=== PATIENT | female | born 1955 | race Caucasian/White ===

== ENCOUNTER → 2022-01-01 | Outpatient (CLI) | payer MEDICARE, SELFPAY ==
[2022-01-01 21:52] LABS: Absolute Lymphocyte Count 1.91 X10^3/uL (0.83-4.51); Absolute Neutrophil Count 4.8 X10^3/uL (2.0-7.7); Basophil# 0.04 X10^3/uL; Basophil% 0.6 % (0-1); Eosinophil# 0.03 X10^3/uL; Eosinophils% 0.4 % (0-5); Hematocrit 41.4 % (37-47); Hemoglobin 13.8 g/dL (12.0-15.0); Lymphocyte # 1.91 X10^3/ul (0.83-4.51); Lymphocyte % 26.3 % (19-41); Mean Corp Hgb Conc 33.3 g/dL (32-36); Mean Corpuscular Hgb 29.7 pg (27.0-32.0); Mean Corpuscular Volume 89.2 fL (81-99); Mean Platelet Vol. 9.8 fl (6.2-12.0); Monocyte# 0.43 X10^3/uL; Monocyte% 5.9 % (0-10); NRBC Flagged by Analyzer 0 % (0-5); Neutrophil # 4.82 X10^3/uL (2.7-7.7); Neutrophil % 66.4 % (47-70); Platelet Count 309 K/mm3 (150-450); RBC Distribution Width CV 12.4 % (11.6-14.6); RBC Distribution Width SD 40.3 fl (35.1-43.9); Red Blood Count 4.64 M/mm3 (4.2-5.4); White Blood Count 7.3 K/mm3 (4.4-11.0)
[2022-01-01 22:03] LABS: ALB/GLOB Ratio 1.2 RATIO (0.9-2.4); AST(SGOT) 19 U/L (15-37); Alanine Aminotransfer ALT/SGPT 25 U/L (13-56); Albumin, Serum 4.5 g/dL (3.2-5.0); Alkaline Phosphatase 74 U/L (45-117); Anion Gap 6 (5-15); BUN 11 mg/dL (7-18); BUN/Creat Ratio 14.5 RATIO (10-20); Calcium,Total 9.8 mg/dL (8.5-10.1); Chloride 100 mmol/L (98-107); Cholesterol 235 mg/dL (200); Creatinine, Serum 0.76 mg/dL (0.55-1.02); EST Glomerular Filtration Rate 82 mL/min (>60); Est Glom Filt Rate - Afr Amer 99 mL/min (>60); Globulin 3.6 g/dL (2.2-4.2); Glucose 98 mg/dL (74-106); High Density Lipoprotein 67 mg/dL; Potassium 4.4 mmol/L (3.5-5.1); Protein, Total 8.1 g/dL (6.4-8.2); Sodium Level 135 mmol/L (136-145); Triglycerides 91 mg/dL; Very Low Density Lipoprotein 18 mg/dL (5-40)
== END | disposition home or self-care (01) ==
PROVIDERS: Visit Provider Nurse Practitioner
DX: Z00.00 Encounter for general adult medical examination without abnormal findings (principal)
CPT/HCPCS: 80053; 80061; 85025

== ENCOUNTER → 2022-09-20 | Outpatient (CLI) | payer MEDICARE, SELFPAY ==
[2022-09-20 21:05] LABS: Absolute Lymphocyte Count 2.09 X10^3/uL (0.83-4.51); Absolute Neutrophil Count 4.3 X10^3/uL (2.0-7.7); Basophil# 0.05 X10^3/uL; Basophil% 0.7 % (0-1); Eosinophil# 0.03 X10^3/uL; Eosinophils% 0.4 % (0-5); Hemoglobin 14.2 g/dL (12.0-15.0); Lymphocyte # 2.09 X10^3/ul (0.83-4.51); Lymphocyte % 30.1 % (19-41); Mean Corp Hgb Conc 33.8 g/dL (32-36); Mean Corpuscular Hgb 30.2 pg (27.0-32.0); Mean Corpuscular Volume 89.4 fL (81-99); Mean Platelet Vol. 9.7 fl (6.2-12.0); Monocyte# 0.44 X10^3/uL; Monocyte% 6.3 % (0-10); NRBC Flagged by Analyzer 0.3 % (0-5); Neutrophil # 4.31 X10^3/uL (2.7-7.7); Neutrophil % 62.2 % (47-70); Platelet Count 327 K/mm3 (150-450); RBC Distribution Width CV 12.6 % (11.6-14.6); RBC Distribution Width SD 41.4 fl (35.1-43.9); White Blood Count 6.9 K/mm3 (4.4-11.0)
[2022-09-20 21:20] LABS: ALB/GLOB Ratio 1.3 RATIO (0.9-2.4); AST(SGOT) 20 U/L (15-37); Alanine Aminotransfer ALT/SGPT 30 U/L (13-56); Albumin, Serum 4.4 g/dL (3.2-5.0); Alkaline Phosphatase 69 U/L (45-117); Anion Gap 5 (5-15); BUN 13 mg/dL (7-18); BUN/Creat Ratio 15.6 RATIO (10-20); CRP, High Sensitivity Cardiac 0.24 mg/L; Calcium,Total 9.2 mg/dL (8.5-10.1); Chloride 105 mmol/L (98-107); Cholesterol 241 mg/dL (200); Creatinine, Serum 0.84 mg/dL (0.55-1.02); EST Glomerular Filtration Rate 73 mL/min (>60); Est Glom Filt Rate - Afr Amer 88 mL/min (>60); Globulin 3.4 g/dL (2.2-4.2); Glucose 87 mg/dL (74-106); High Density Lipoprotein 69 mg/dL; Potassium 3.7 mmol/L (3.5-5.1); Protein, Total 7.8 g/dL (6.4-8.2); Sodium Level 140 mmol/L (136-145); Triglycerides 76 mg/dL; Very Low Density Lipoprotein 15 mg/dL (5-40)
[2022-09-24 16:35] LABS: Vitamin D 1,25-Dihydroxy 59.4 pg/mL (24.8-81.5)
== END | disposition home or self-care (01) ==
PROVIDERS: Visit Provider Nurse Practitioner
DX: Z00.00 Encounter for general adult medical examination without abnormal findings (principal); J01.20 Acute ethmoidal sinusitis, unspecified; E78.00 Pure hypercholesterolemia, unspecified; E55.9 Vitamin D deficiency, unspecified
CPT/HCPCS: 80053; 80061; 82652; 85025; 86141

== ENCOUNTER → 2023-06-02 | Outpatient (CLI) | payer MEDICARE, SELFPAY | END | disposition home or self-care (01) | PROVIDERS: PCP Nurse Practitioner; Visit Provider Nurse Practitioner | DX: N30.90 Cystitis, unspecified without hematuria (principal) | CPT/HCPCS: 87077; 87086; 87088; 87186 ==

== ENCOUNTER → 2024-09-27 | Outpatient (CLI) | payer MEDICARE, SELFPAY | END | disposition home or self-care (01) | PROVIDERS: PCP Nurse Practitioner; Referring Provider Nurse Practitioner; Visit Provider Nurse Practitioner | DX: N30.90 Cystitis, unspecified without hematuria (principal); E28.39 Other primary ovarian failure | CPT/HCPCS: 87086; 87088 ==

== ENCOUNTER → 2025-02-15 | Outpatient (CLI) | payer MEDICARE, SELFPAY ==
--- OUTSIDE RECORDS SUMMARY | 2025-02-15 22:41 | XMS RPT_ITS | CCD ---
Author Organization [facility] Care Team Providers Care Commercial Director Name Role Phone Jeane Donaldson Unavailable Unavailable Jeane Donaldson Unavailable Unavailable Jeane Donaldson Unavailable Unavailable Unavailable Primary Care Provider UnavailTrever Rothman Unavailable Unavailable Unknown, Referring Provider Unavailable Unav ailable Unknown, Referring Provider Unavailable Unav ailable Unavailable Unavailable Jeane Donaldson S Unavailable Dougie WAREHOUSE AND RECEIVING SUPERVISOR-C, Bianca Primary Care Provider Dougie WAREHOUSE AND RECEIVING SUPERVISOR-C, Bianca Attending Provider Dougie WAREHOUSE AND RECEIVING SUPERVISOR-C, Bianca Referring Provider Bianca Constantino NP Referring Unavailable Dougie WAREHOUSE AND RECEIVING SUPERVISORBianca Attending Unavailable Dougie WAREHOUSE AND RECEIVING SUPERVISOR, Bianca Primary Care Unavailable Allergies Allergy Classification Reported Allergen(s) Allergy Type Date of Onset Reaction(s) Facility (16 sources) Ampicillin; Translations: [ampicillin] Drug Allergy 01-01-2022 [facility] Medications Current Medications Medication Drug Class(es) Dates Sig (Normalized) Sig (Original) ciprofloxacin 500 mg oral tablet (3 sources) Quinolone Antimicrobial Start: 09-27-2024 take 1 tablet by mouth twice daily Ciprofloxacin Hcl (Cipro) 500 mg tablet Active 500 mg PO TWICE A DAY September 27, 2024 12:00am Start: 06-02-2023 End: 04-06-2024 take 1 tablet by mouth twice daily Ciprofloxacin Hcl (Cipro) 500 mg tablet Discontinued 500 mg PO TWICE A DAY June 02, 2023 1:00am April 06, 2024 5:33pm fluconazole 150 mg oral tablet (4 sources) Azole Antifungal Start: 03-13-2023 End: 06-02-2023 Fluconazole 150 mg tablet Active 150 mg PO Every 3 Days June 02, 2023 7:06pm may repeat second dose 72 hrs after first dose if symptoms persist ofloxacin 3 mg/ml ophthalmic solution (1 source) Quinolone Antimicrobial Start: 04-06-2024 Ofloxacin 0.3 % drop s Active 0 OPHTHALMIC .COMPLEX April 06, 2024 12:00am put 1-2 drps into affected eye(s) every 2-4 h x 2 days, then 1-2 drps 4 times/day days 3-7 ophthalmic (eye) triamcinolone acetonide 5 mg/ml topical cream (1 source) Corticosteroid Start: 04-06-2024 Triamcinolone Acetonide 0.5 % cream Active 1 NMA TOPICAL TWICE A DAY April 06, 2024 12:00am Completed/Discontinued Medications Medication Drug Class(es) Dates Sig (Normalized) Sig (Original) azithromycin 250 mg oral tablet (1 source) Macrolide Antimicrobial Start: 04-06-2024 End: 04-11-2024 take 2 tablets by mouth once daily, then take 1 tablet by mouth once daily at mealtime Azithromycin 250 mg tablet Discontinued 250 mg PO daily 6 April 06, 2024 12:00am April 10, 2024 12:00am April 11, 2024 12:08am 2 po qd for 1 day then 1 po qd for 4 days with food or after eating cefuroxime 500 mg oral tablet (2 sources) Cephalosporin Antibacterial Start: 03-13-2023 End: 06-02-2023 take 1 tablet by mouth twice daily Cefuroxime Axetil 500 mg tablet Discontinued 500 mg PO TWICE A DAY March 13, 2023 12:00am June 02, 2023 7:06pm doxycycline monohydrate 100 mg oral tablet (11 sources) Tetracycline-class Drug Start: 04-16-2019 take 1 tablet by mouth twice daily Doxycycline Monohydrate 100 MG Oral Tablet TAKE 1 TABLET TWICE DAILY. Quantity: 20 Refills: 0 Ordered: 16-Apr-2019 Trever Baird MD Start : 16-Apr-2019 Active Start: 04-16-2019 take 1 tablet by don th twice daily Doxycycline Monohydrate 100 MG Oral Tablet TAKE 1 TABLET TWICE DAILY. Quantity: 20 Refills: 0 Trever Baird MD Start : 16-Apr-2019 Active LIANG Dyer (10 sources) Start: 09-07-2021 Wlaking Boot, CAM size 8.5 shoe Quantity: 1 Refills: 0 Ordered: 07-Sep-2021 Kelsey ABIODUNErnestina Start : 07-Sep-2021 Active Problems Problem Classification Problem Date Documented Da te Episodic/Chronic E Codes: Fall (10 sources) Fall (on) (from) unspecified stairs and steps, initial encounter; Translations: [Fall from stairs] Episodic Fracture of lower limb (10 sources) Closed fracture of distal fibula ; Translations: [Unspecified fracture of ankle, closed] Episodic Genitourinary symptoms and ill-defined conditions (1 source) Alfredo hematuria; Translations: [Gross hematuria] 06-08-2023 Episodic Inflammation; infection of eye (except that caused by tuberculosis or sexually transmitteddisease) (1 source) Conjunctivitis; Translations: [Unspecified conjunctivitis] 04-07-2024 Episodic Menopausal disorders (3 sources) Decreased estrogen level; 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 Chronic Nonspecific chest pain (3 sources) Chest pain; Translations: [Chest pain, unspecified] 09-20-2022 Episodic Nutritional deficiencies (3 sources) Vitamin D deficiency; Translations: [Vitamin D deficiency, unspecified] 09-20-2022 Chronic Osteoporosis (3 sources) Menopausal osteoporosis; Translations: [Age-related osteoporosis without current pathological fracture] 09-20-2022 Chronic Other connective tissue disease (8 sources) H/O: arthritis; Translations: [Personal history of arthritis] Episodic Other ear and sense organ disorders (3 sources) Bilateral hearing loss; Translations: [Unspecified hearing loss, bilateral] 05-01-2022 Chronic Other ear and sense organ disorders (3 sources) Pain of ear structure; Translations: [Otalgia, unspecified ear] 05-01-2022 Episodic Other ear and sense organ disorders (3 sources) Impacted cerumen; Translations: [Impacted cerumen, bilateral] 05-01-2022 Episodic Other injuries and conditions due to external causes (10 sources) Injury of left foot; Translations: [Knee, leg, ankle, and foot injury] Episodic Other injuries and conditions due to external causes (10 sources) Injury of left ankle; Translations: [Knee, leg, ankle, and foot injury] Episodic Other lower respiratory disease (4 sources) Cough; Translations: [Cough] 09-16-2018 Episodic Other non-traumatic joint disorders (6 sources) Ankle pain; Translations: [Pain in joint, ankle and foot] Episodic Other upper respiratory infections (15 sources) Chronic sinusitis; Translations: [Unspecified sinusitis (chronic)] 09-16-2018 Chronic Other upper respiratory infections (2 sources) Acute maxillary sinusitis; Translations: [Acute maxillary sinusitis, unspecified] 03-13-2023 Episodic Otitis media and related conditions (2 sources) Acute right otitis media; Translations: [Otitis media, unspecified, right ear] 03-13-2023 Episodic Urinary tract infections (3 sources) Cystitis; Translations: [Cystitis, unspecified without hematuria] Onset: 09-30-2024 06-02-2023 Episodic Results Test Name Value Interpretation Reference Range Facility Urine Cultureon 09-29-2024 URC Below infection leve l. Mixed Gram Pos Gram Neg Org Lee Count 1000-10,000 MIX[facility] Mixed contaminants. Submit a new specimen if indicated. Normal [facility] Comment on above: Performed By: #### M 100.2200 #### [facility] [place], [address] Urine cultureOrdered By: Rogelio Constantino on 09-27-2024 Bacteria identified Cx Nom (U) Mixed Gram Pos & Gram Neg Org Abnormal [facility] Culture, urineOrdered By: Do ra Constantino on 06-02-2023 Bacteria identified Cx Nom (U) Escherichia coli [facility] Absolute lymphocyte countOrd ered By: Bianca Constantino on 09-20-2022 Lymphocytes Auto (Unsp spec) [#/Vol] 2.09 10*3/uL 0.83-4.51 [facility] Basophil percentageOrdered B y: Bianca Constantino on 09-20-2022 Basophils/100 WBC (Bld) 0.7 % 0-1 [facility] Bilirubin [Mass/Vol] 0.60 mg/dL 0.20-1.00 [facility] Comment on above: For patients on eltr ombopag therapy, use of Dimension [place] TBIL is not recommended. Chloride [Moles/Vol] 105 mmol/L 98-107 [facility] Cholesterol [Mass/Vol] 241 mg/dL <200 [facility] Comment on above: <200 mg/dL Desirable 200-240 mg/dL Borderline >240 mg/dL High Risk Eosinophils/100 WBC (Bld) 0.4 % 0-5 [facility] Glucose [Mass/Vol] 87 mg/dL 74-106 [facility] Neutrophils (Bld) [#/Vol] 4.3 10*3/uL 2.0-7.7 [facility] Neutrophils/100 WBC (Bld) 62.2 % 47-70 [facility] Potassium [Moles/Vol] 3.7 mmol/L 3.5-5.1 [facility] Protein [Mass/Vol] 7.8 g/dL 6.4-8.2 [facility] Sodium [Moles/Vol] 140 mmol/L 136-145 [facility] Triglyceride [Mass/Vol] 76 mg/dL <199 [facility] Comment on above: The drugs N-Acetylcy steine and Metamizole may falsely depress this assay.Serum Triglycerides Reference Interval Normal <150 mg/dL Borderline high 150 - 199 mg/dL High 200 - 499 mg/dL Very High > or = 500 mg/dL WBC (Bld) [#/Vol] 6.9 10*3/uL 4.4-11.0 [facility] Blood erythrocytes count (nu mber/volume)Ordered By: Bianca Constantino on 09-20-2022 RBC (Bld) [#/Vol] 4.70 10*6/uL 4.2-5.4 [facility] Blood hemoglobin measurement (mass/volume)Ordered By: Bianca Constantino on 09-20-2022 Hemoglobin (Bld) [Mass/Vol] 14.2 g/dL 12.0-15.0 [facility] Blood lymphocytes/100 leukoc ytesOrdered By: Bianca Constantino on 09-20-2022 Lymphocytes/100 WBC (Bld) 30.1 % 19-41 [facility] Blood monocytes/100 leukocyt esOrdered By: Bianca Constantino on 09-20-2022 Monocytes/100 WBC (Bld) 6.3 % 0-10 [facility] Blood platelet mean volumeOr dered By: Bianca Constantino on 09-20-2022 Platelet mean volume (Bld) [Entitic vol] 9.7 fL 6.2-12.0 [facility] Determination of erythrocyte mean corpuscular volume (MCV)Ordered By: Bianca Constantino on 09-20-2022 MCV (RBC) [Entitic vol] 89.4 fL 81-99 [facility] Hematocrit Auto (Bld) [Volum e fraction]Ordered By: Bianca Constantino on 09-20-2022 Hematocrit (Bld) [Volume fraction] 42.0 % 37-47 [facility] - Chemistry and C hemistry - challengeOrdered By: Bianca Constantino on 09-20-2022 ALP [Catalytic activity/Vol] 69 U/L 45-117 [facility] ALT [Catalytic activity/Vol] 30 U/L 13-56 [facility] CO2 [Moles/Vol] 30.0 mmol/L 21.0-32.0 [facility] Globulin (S) [Mass/Vol] 3.4 g/dL 2.2-4.2 [facility] Urea nitrogen/Creatinine [Mass ratio] 15.6 mg/mg 10-20 [facility] - Hematology and Cell countsOrdered By: Bianca Constantino on 09-20-2022 Erythrocyte distribution width (RBC) [Entitic vol] 41.4 fL 35.1-43.9 [facility] Erythrocyte distribution width (RBC) [Ratio] 12.6 % 11.6-14.6 [facility] Immature granulocytes/100 WBC (Bld) 0.300 % 0.0-0.9 [facility] Comment on above: IG% - Immature Granu locytes (promyelocytes, myelocytes and metamyelocytes) > 1% indicates that a LEFT SHIFT is Present. MCH (RBC) [Entitic mass] 30.2 pg 27.0-32.0 [facility] Nucleated RBC/100 WBC (Bld) [Ratio] 0.3 % 0-5 [facility] MCHC Auto (RBC) [Mass/Vol]Or dered By: Bianca Constantino on 09-20-2022 MCHC (RBC) [Mass/Vol] 33.8 g/dL 32-36 [facility] No Panel InformationOrdered By: Bianca Constantino on 09-20-2022 C-Reactive Protein High Sensitivity 0.24 mg/L <3.00 [facility] Comment on above: Low Relative Risk of CVD <1.0 mg/L Average Relative Risk of CVD 1.0 - 3.0 mg/L High Relative Risk of CVD >3.0 mg/L Estimated GFR (MDRD) Amer 88 mL/min >60 [facility] Comment on above: GFR Calc Estimated GFR (MDRD) Non-Af Amer 73 mL/min >60 [facility] Comment on above: Non- GFR Calc Platelets bldOrdered By: Rogelio Constantino on 09-20-2022 Platelets (Bld) [#/Vol] 327 10*3/uL 150-450 [facility] Serum or plasma albumin arpit urement (mass/volume)Ordered By: Bianca Constantino on 09-20-2022 Albumin [Mass/Vol] 4.4 g/dL 3.2-5.0 [facility] Serum or plasma albumin/glob ulin mass ratioOrdered By: Bianca Constantino on 09-20-2022 Albumin/Globulin [Mass ratio] 1.3 {ratio} 0.9-2.4 [facility] Serum or plasma calcitriol m easurement (mass/volume)Ordered By: Bianca Constantino on 09-20-2022 1,25-dihydroxyvitamin D3 [Mass/Vol] 59.4 pg/mL 24.8-81.5 [facility] Comment on above: Performed at: - [address] [id number] Director: Colleen Schreiber MD, Phone: [phone] Serum or plasma calcium arpit urement (mass/volume)Ordered By: Bianca Constantino on 09-20-2022 Calcium [Mass/Vol] 9.2 mg/dL 8.5-10.1 [facility] Serum or plasma cholesterol in HDL measurement (mass/volume)Ordered By: Bianca Constantino on 09-20-2022 Cholesterol in HDL [Mass/Vol] 69 mg/dL >40 [facility] Comment on above: The drugs N-Acetylcy steine and Metamizole may falsely depress this assay. Reference Range HDL <40 mg/dL Low HDL Cholesterol HDL >or= 60 mg/dL High HDL Cholesterol Serum or plasma cholesterol in VLDL measurement (mass/volume)Ordered By: Bianca Constantino on 09-20-2022 Cholesterol in VLDL [Mass/Vol] 15 mg/dL 5-40 [facility] Serum or plasma creatinine m easurement (mass/volume)Ordered By: Bianca Constantino on 09-20-2022 Creatinine [Mass/Vol] 0.84 mg/dL 0.55-1.02 [facility] Comment on above: The validity of the calculated GFR & GFRAA in patients over 70 years has not been determined. Clinical correlation is essential. Serum or plasma low density lipoprotein (LDL) cholesterol measurement (mass/volume)Ordered By: Bianca Constantino on 09-20-2022 Cholesterol in LDL [Mass/Vol] 157 mg/dL 0-130 [facility] Serum or plasma urea nitroge n measurement (mass/volume)Ordered By: Bianca Constantino on 09-20-2022 Urea nitrogen [Mass/Vol] 13 mg/dL 7-18 [facility] Thin prep Papanicolaou smear with manual screeningOrdered By: Bianca Constantino on 09-20-2022 Thin prep Papanicolaou smear with manual screening 20 U/L 15-37 [facility] Thin prep Papanicolaou smear with manual screening 5 5-15 [facility] Absolute lymphocyte counton 01-01-2022 Lymphocytes Auto (Unsp spec) [#/Vol] 1.91 10*3/uL 0.83-4.51 [facility] Work Phone: Basophil percentageon 2021 Basophils/100 WBC (Bld) 0.6 % 0-1 [facility] Work Phone: Bilirubin [Mass/Vol] 1.10 mg/dL 0.20-1.00 [facility] Work Phone: Comment on above: For patients on eltr ombopag therapy, use of Dimension [place] TBIL is not recommended. Chloride [Moles/Vol] 100 mmol/L 98-107 [facility] Work Phone: Cholesterol [Mass/Vol] 235 mg/dL <200 [facility] Work Phone: Comment on above: <200 mg/dL Desirable 200-240 mg/dL Borderline >240 mg/dL High Risk Eosinophils/100 WBC (Bld) 0.4 % 0-5 [facility] Work Phone: Glucose [Mass/Vol] 98 mg/dL 74-106 [facility] Work Phone: [phone] Neutrophils (Bld) [#/Vol] 4.8 10*3/uL 2.0-7.7 [facility] Work Phone: [phone] Neutrophils/100 WBC (Bld) 66.4 % 47-70 [facility] Work Phone: Potassium [Moles/Vol] 4.4 mmol/L 3.5-5.1 [facility] Work Phone: [phone] Protein [Mass/Vol] 8.1 g/dL 6.4-8.2 [facility] Work Phone: Sodium [Moles/Vol] 135 mmol/L 136-145 [facility] Work Phone: [phone] Triglyceride [Mass/Vol] 91 mg/dL <199 [facility] Work Phone: Comment on above: The drugs N-Acetylcy steine and Metamizole may falsely depress this assay.Serum Triglycerides Reference Interval Normal <150 mg/dL Borderline high 150 - 199 mg/dL High 200 - 499 mg/dL Very High > or = 500 mg/dL WBC (Bld) [#/Vol] 7.3 10*3/uL 4.4-11.0 [facility] Work Phone: Blood erythrocytes count (nu mber/volume)on 01-01-2022 RBC (Bld) [#/Vol] 4.64 10*6/uL 4.2-5.4 [facility] Work Phone: Blood hemoglobin measurement (mass/volume)on 01-01-2022 Hemoglobin (Bld) [Mass/Vol] 13.8 g/dL 12.0-15.0 [facility] Work Phone: [phone] Blood lymphocytes/100 leukoc yteson 01-01-2022 Lymphocytes/100 WBC (Bld) 26.3 % 19-41 [facility] Work Phone: Blood monocytes/100 leukocyt eson 01-01-2022 Monocytes/100 WBC (Bld) 5.9 % 0-10 [facility] Work Phone: Blood platelet mean volumeon 01-01-2022 Platelet mean volume (Bld) [Entitic vol] 9.8 fL 6.2-12.0 [facility] Work Phone: Determination of erythrocyte mean corpuscular volume (MCV)on 01-01-2022 MCV (RBC) [Entitic vol] 89.2 fL 81-99 [facility] Work Phone: Hematocrit Auto (Bld) [Volum e fraction]on 01-01-2022 Hematocrit (Bld) [Volume fraction] 41.4 % 37-47 [facility] Work Phone: Laboratory - Chemistry and C hemistry - challengeon 01-01-2022 ALP [Catalytic activity/Vol] 74 U/L 45-117 [facility] Work Phone: ALT [Catalytic activity/Vol] 25 U/L 13-56 [facility] Work Phone: CO2 [Moles/Vol] 29.0 mmol/L 21.0-32.0 [facility] Work Phone: Globulin (S) [Mass/Vol] 3.6 g/dL 2.2-4.2 [facility] Work Phone: Urea nitrogen/Creatinine [Mass ratio] 14.5 mg/mg 10-20 [facility] Work Phone: Laboratory - Hematology and Cell countson 01-01-2022 Erythrocyte distribution width (RBC) [Entitic vol] 40.3 fL 35.1-43.9 [facility] Work Phone: Erythrocyte distribution width (RBC) [Ratio] 12.4 % 11.6-14.6 [facility] Work Phone: Immature granulocytes/100 WBC (Bld) 0.400 % 0.0-0.9 [facility] Work Phone: [phone] Comment on above: IG% - Immature Granu locytes (promyelocytes, myelocytes and metamyelocytes) > 1% indicates that a LEFT SHIFT is Present. MCH (RBC) [Entitic mass] 29.7 pg 27.0-32.0 [facility] Work Phone: [phone] Nucleated RBC/100 WBC (Bld) [Ratio] 0 % 0-5 [facility] Work Phone: [phone] MCHC Auto (RBC) [Mass/Vol]on 01-01-2022 MCHC (RBC) [Mass/Vol] 33.3 g/dL 32-36 [facility] Work Phone: [phone] No Panel Informationon 01-01 Estimated GFR (MDRD) Amer 99 mL/min >60 [facility] Work Phone: [phone] Comment on above: GFR Calc Estimated GFR (MDRD) Non-Af Amer 82 mL/min >60 [facility] Work Phone: [phone] Comment on above: Non- GFR Calc Platelets bldon 01-01-2022 Platelets (Bld) [#/Vol] 309 10*3/uL 150-450 [facility] Work Phone: [phone] Serum or plasma albumin arpit urement (mass/volume)on 01-01-2022 Albumin [Mass/Vol] 4.5 g/dL 3.2-5.0 [facility] Work Phone: [phone] Serum or plasma albumin/glob ulin mass ratioon 01-01-2022 Albumin/Globulin [Mass ratio] 1.2 {ratio} 0.9-2.4 [facility] Work Phone: [phone] Serum or plasma calcium arpit urement (mass/volume)on 01-01-2022 Calcium [Mass/Vol] 9.8 mg/dL 8.5-10.1 [facility] Work Phone: [phone] Serum or plasma cholesterol in HDL measurement (mass/volume)on 01-01-2022 Cholesterol in HDL [Mass/Vol] 67 mg/dL >40 [facility] Work Phone: Comment on above: The drugs N-Acetylcy steine and Metamizole may falsely depress this assay. Reference Range HDL <40 mg/dL Low HDL Cholesterol HDL >or= 60 mg/dL High HDL Cholesterol Serum or plasma cholesterol in VLDL measurement (mass/volume)on 01-01-2022 Cholesterol in VLDL [Mass/Vol] 18 mg/dL 5-40 [facility] Work Phone: Serum or plasma creatinine m easurement (mass/volume)on 01-01-2022 Creatinine [Mass/Vol] 0.76 mg/dL 0.55-1.02 [facility] Work Phone: Comment on above: The validity of the calculated GFR & GFRAA in patients over 70 years has not been determined. Clinical correlation is essential. Serum or plasma low density lipoprotein (LDL) cholesterol measurement (mass/volume)on 01-01-2022 Cholesterol in LDL [Mass/Vol] 150 mg/dL 0-130 [facility] Work Phone: Serum or plasma urea nitroge n measurement (mass/volume)on 01-01-2022 Urea nitrogen [Mass/Vol] 11 mg/dL 7-18 [facility] Work Phone: Thin prep Papanicolaou smear with manual screeningon 01-01-2022 Thin prep Papanicolaou smear with manual screening 19 U/L 15-37 [facility] Work Phone: Thin prep Papanicolaou smear with manual screening 6 5-15 [facility] Work Phone: Established Visit (Orthopaed ic Surgery)on 10-29-2021 Established Visit (Orthopaedic Surgery) Diagnoses/Problems Assessed Closed fracture of distal end of left fibula (824.8) (E12.340L) Patient Discussion/Summary Assessment: 7 weeks status post nondisplaced left ankle distal fibula fracture, Mark B fracture pattern, doing well, previous x-rays showed good healing, nontender at fracture site today, still with some occasional swelling and mild discomfort more distally at the ankle Plan: Recommend continued conservative management. Anticipate residual swelling and discomfort will gradually improve with time. I did provide her with a home physical therapy program, she was not interested in formal physical therapy which I think is reasonable. She will follow-up on an as-needed basis for her ankle Patient may see me in the future for further evaluation of right hip arthritis. Chief Complaint F/U LT ANKLE History of Present Illness Pleasant 66-year-old female presenting for follow-up of left ankle injury, Mark B distal fibula lateral malleolus fracture. Patient is 7 weeks out from injury, we are treating conservatively as fracture is nondisplaced, treatment has been conservative/nonoperative. At 5-week follow-up I recommended that she begin weaning out of her walking boot over the next 1 to 2 weeks which she was able to do. She says that she has no pain at the fracture site at the lateral malleolus, she will get occasional mild discomfort and swelling further down in the ankle. Patient is pleased with her improvement. She says activities are more limited by ongoing right hip pain rather than ankle pain at this time. Has known hip arthritis. She does feel like wearing boot did exacerbate some of her hip symptoms. She has been following with outside orthopedic provider for her hip. Review of Systems The patient's past medical, surgical, family, and social history as well as allergies and medications were reviewed with the patient and updated in the chart Constitutional: no fever, no chills, not feeling tired, no recent weight gain and no recent weight loss. ENT: no nosebleeds. Cardiovascular: no chest pain. Respiratory: no shortness of breath and no cough. Gastrointestinal: no abdominal pain, no nausea, no vomiting and no diarrhea. Integumentary: no rashes and no skin wound. Neurological: no headache. Psychiatric: no depression and no sleep disturbances. Endocrine: no muscle weakness and no muscle cramps. Hematologic/Lymphatic: no swollen glands and no tendency for easy bruising. All other systems have been reviewed and are negative for complaint. Active Problems Problems Ankle pain (719.47) (M25.579) Closed fracture of distal end of left fibula (824.8) (S82.832A) Fall from stairs (E880.9) (W10.9XXA) Foot injury, left, initial encounter (959.7) (S99.922A) Left ankle injury, initial encounter (959.7) (S99.912A) Sinobronchitis (473.9,490) (J32.9,J40) Past Medical History Problems History of arthritis (V13.4) (Z87.39) Family History Mother No pertinent family history Father No pertinent family history Social History Problems No illicit drug use Non-smoker (V49.89) (Z78.9) Allergies Medication ampicillin Recorded By: Claudio Hardin; 04/16/2019 4:01:56 PM Current Meds Medication NameInstruction Doxycycline Monohydrate 100 MG Oral TabletTAKE 1 TABLET TWICE DAILY. WalkerUSE DIRECTED. Wlaking Boot, CAMsize 8.5 shoe Vitals Vital Signs Recorded: 29Oct2021 10:47AM Height5 ft 5 in Khpsub732 lb BMI Oajkbihqov48.97 kg/m2 BSA Calculated1.66 Physical Exam General/Constitutional: well appearing, no distress, appears stated age HEENT: sclera clear Respiratory: non labored breathing Vascular: No edema, swelling or tenderness, except as noted in detailed exam. Integumentary: No impressive skin lesions present, except as noted in detailed exam. Neurological: Alert and oriented Psychological: Normal mood and affect. Musculoskeletal: Normal, except as noted in detailed exam and in HPI. Normal gait out of boot unassisted Left ankle: Mild residual lateral soft tissue swelling more prominent near ATFL. No tenderness to palpation at the fracture site of the lateral malleolus. Improved range of motion at the ankle equal to the right. No significant motor deficits or notable pain with strength testing is present. Sensation intact to light touch, 2+ pedal pulses Results/Data No new imaging today, previous x-rays showed healing nondisplaced Makr B distal fibula fracture Signatures Electronically signed by : Claire Brewer MD; Oct 29 2021 11:12AM EST (Author) Normal [facility] ANKLE, COMPLETE, MIN 3 VIEWS on 10-12-2021 ANKLE, COMPLETE, MIN 3 VIEWS Patient Name: ABDOUL FORTUNE STUDY: Left ankle, 3 views. INDICATION: pain M25.579: Ankle pain. COMPARISON: 09/21/2021. ACCESSION NUMBER(S): [id number] ORDERING CLINICIAN: CLAIRE BREWER FINDINGS: Healing nondisplaced Mark B distal fibular fracture again noted. No malalignment between the fracture fragments. Interval increase in amount of bridging callus. The ankle mortise is normally aligned. Mild ankle soft tissue swelling noted. No degenerative changes. Small ankle joint effusion noted. IMPRESSION: Healing nondisplaced Mark B distal fibular fracture without malalignment. Additional findings as above. Electronically signed by: JOSE MARR MD [facility] Established Visit (Orthopaed ic Surgery)on 10-12-2021 Established Visit (Orthopaedic Surgery) Diagnoses/Problems Assessed Closed fracture of distal end of left fibula (824.8) (S82.448J) Patient Discussion/Summary Assessment: 5 weeks status post nondisplaced left ankle distal fibula fracture, Mark B fracture pattern, there is some bridging callus formation on x-ray, she has some mild residual tenderness palpation at fracture site Plan: I am recommending that she wear boot for an additional 1 week, then she can begin weaning out of the boot over the following week as symptoms allow, she will remain in boot if she has notable discomfort with walking/weightbearing out of the boot. I will plan to see her back in 2 weeks for reassessment. Consider repeat x-rays pending clinical assessment. Chief Complaint F/U LEFT ANKLE History of Present Illness Pleasant 66-year-old female presenting for follow-up of left ankle injury, Mark B distal fibula lateral malleolus fracture. Patient is 5 weeks out from injury, we are treating conservatively as fracture is nondisplaced, she has been weightbearing as tolerated in a tall walking boot over the past 5 weeks. Continued improvement in symptoms, she has taken a few steps around the house out of the boot with mild discomfort. She admits to some residual swelling. No new injuries or symptoms. Review of Systems The patient's past medical, surgical, family, and social history as well as allergies and medications were reviewed with the patient and updated in the chart Constitutional: no fever, no chills, not feeling tired, no recent weight gain and no recent weight loss. ENT: no nosebleeds. Cardiovascular: no chest pain. Respiratory: no shortness of breath and no cough. Gastrointestinal: no abdominal pain, no nausea, no vomiting and no diarrhea. Musculoskeletal: as noted in HPI. Integumentary: no rashes and no skin wound. Neurological: no headache. Psychiatric: no depression and no sleep disturbances. Endocrine: no muscle weakness and no muscle cramps. Hematologic/Lymphatic: no swollen glands and no tendency for easy bruising. All other systems have been reviewed and are negative for complaint. Active Problems Problems Ankle pain (719.47) (M25.579) Closed fracture of distal end of left fibula (824.8) (S82.832A) Fall from stairs (E880.9) (W10.9XXA) Foot injury, left, initial encounter (959.7) (S99.922A) Left ankle injury, initial encounter (959.7) (S99.912A) Sinobronchitis (473.9,490) (J32.9,J40) Past Medical History Problems History of arthritis (V13.4) (Z87.39) Family History Mother No pertinent family history Father No pertinent family history Social History Problems No illicit drug use Non-smoker (V49.89) (Z78.9) Allergies Medication ampicillin Recorded By: Claudio Hardin; 04/16/2019 4:01:56 PM Current Meds Medication NameInstruction Doxycycline Monohydrate 100 MG Oral TabletTAKE 1 TABLET TWICE DAILY. WalkerUSE DIRECTED. Wlaking Boot, CAMsize 8.5 shoe Physical Exam General/Constitutional: well appearing, no distress, appears stated age HEENT: sclera clear Respiratory: non labored breathing Vascular: No edema, swelling or tenderness, except as noted in detailed exam. Integumentary: No impressive skin lesions present, except as noted in detailed exam. Neurological: Alert and oriented Psychological: Normal mood and affect. Musculoskeletal: Normal, except as noted in detailed exam and in HPI. Normal gait out of boot unassisted Left ankle: Mild residual lateral soft tissue swelling. She has mild residual tenderness to palpation at the fracture site of the lateral malleolus, rates as a 2 out of 10. Improved range of motion at the ankle but slightly limited compared to the right. No significant motor deficits or notable pain with strength testing is present. Sensation intact to light touch, 2+ pedal pulses Results/Data Repeat x-rays of the left ankle obtained today and independently reviewed, evidence of healing oblique fracture of the lateral malleolus with bridging callus formation seen Signatures Electronically signed by : Claire Brewer MD; Oct 12 2021 11:07AM EST (Author) [facility] 10[facility]12-2021 XR Ankle 3 Views Please click on the link to view the study images [facility] Work Phone: XR Ankle 3 Views [facility] Work Phone: ANKLE, COMPLETE, MIN 3 VIEWS on 09-21-2021 ANKLE, COMPLETE, MIN 3 VIEWS Patient Name: ABDOUL FORTUNE STUDY: ANKLE, COMPLETE, MIN 3 VIEWS; Left; 09/21/2021 10:12 am INDICATION: PAIN M25.579: Ankle pain. COMPARISON: Left ankle radiographs 09/07/2021 ACCESSION NUMBER(S): [id number] ORDERING CLINICIAN: CLAIRE BREWER FINDINGS: Fracture lucencies from previously seen lateral malleolar fracture are still evident. Mild soft tissue swelling. The ankle mortise appears congruent. Probable tibiotalar effusion. No osteochondral lesion of the talar dome. IMPRESSION: Fracture lucencies from patient's lateral malleolar fracture is still evident. Associated mild tibiotalar effusion. Soft tissue swelling. No focal malalignment. Electronically signed by: IVETH CACERES MD Normal [facility] Established Visit (Orthopaed ic Surgery)on 09-21-2021 Established Visit (Orthopaedic Surgery) Diagnoses/Problems Assessed Closed fracture of distal end of left fibula (824.8) (S82.832A) Orders Closed fracture of distal end of left fibula Disability Placard; Status:Complete - Retrospective By Protocol Authorization; Done: 21Sep2021 Patient Discussion/Summary Assessment: 2 weeks status post nondisplaced left ankle distal fibula fracture, Mark B fracture pattern, early healing seen on x-ray, decreasing tenderness to palpation on exam Plan: Recommend continue conservative management, she will remain in boot, weightbearing as tolerated for additional 3 weeks. She will follow-up at that time for reassessment with repeat x-rays of the left ankle Chief Complaint F/u left ankle History of Present Illness Pleasant 66-year-old female presenting for follow-up of left ankle injury, Mark B distal fibula lateral malleolus fracture. Patient is 2 weeks out from injury, we are treating conservatively as fracture is nondisplaced, she has been weightbearing as tolerated in a tall walking boot over the past 2 weeks. She says that pain is improving. She has been compliant with immobilization. She is taking kimm-oao-zoxajhq medication sparingly for pain. She denies any new injuries or symptoms. She is going to [place] for the next 2 weeks, has an apartment there. Review of Systems The patient's past medical, surgical, family, and social history as well as allergies and medications were reviewed with the patient and updated in the chart Constitutional: no fever and no chills. Respiratory: no shortness of breath and no cough. Musculoskeletal: as noted in HPI. Active Problems Problems Ankle pain (719.47) (M25.579) Closed fracture of distal end of left fibula (824.8) (S82.832A) Fall from stairs (E880.9) (W10.9XXA) Foot injury, left, initial encounter (959.7) (S99.922A) Left ankle injury, initial encounter (959.7) (S99.912A) Sinobronchitis (473.9,490) (J32.9,J40) Past Medical History Problems History of arthritis (V13.4) (Z87.39) Family History Mother No pertinent family history Father No pertinent family history Social History Problems No illicit drug use Non-smoker (V49.89) (Z78.9) Allergies Medication ampicillin Recorded By: Claudio Hardin; 04/16/2019 4:01:56 PM Current Meds Medication NameInstruction Doxycycline Monohydrate 100 MG Oral TabletTAKE 1 TABLET TWICE DAILY. WalkerUSE DIRECTED. Wlaking Boot, CAMsize 8.5 shoe Physical Exam General/Constitutional: well appearing, no distress, appears stated age HEENT: sclera clear Respiratory: non labored breathing Vascular: No edema, swelling or tenderness, except as noted in detailed exam. Integumentary: No impressive skin lesions present, except as noted in detailed exam. Neurological: Alert and oriented Psychological: Normal mood and affect. Musculoskeletal: Normal, except as noted in detailed exam and in HPI. Mildly antalgic gait, unassisted Left ankle: Soft tissue swelling is improving, more mild soft tissue swelling over the lateral ankle in dorsum of foot, there is some residual ecchymosis present. She has decreased tenderness palpation at fracture site at the lateral malleolus. She has slightly decreased range of motion at the ankle in all directions. No significant motor deficits or notable pain with strength testing is present. Sensation intact to light touch, 2+ pedal pulses Results/Data Repeat x-rays of the left ankle obtained today and independently reviewed, she has evidence of a healing nondisplaced oblique fracture of the lateral malleolus, fracture lines are less obvious today Signatures Electronically signed by : Claire Brewer MD; Sep 21 2021 10:40AM EST (Author) [facility] 09-21-2021 XR Ankle 3 Views Please click on the link to view the study images [facility] [employer] [address] Work Phone: XR Ankle 3 Views [facility] [employer] [address] Work Phone: Initial Visit (Orthopaedic [facility])on 09-10-2021 Initial Visit (Orthopaedic Surgery) Diagnoses/Problems Assessed Closed fracture of distal end of left fibula, unspecified fracture morphology, initial encounter (824.8) (S82.832A) Orders SocHx: Non-smoker Tobacco Use Screening; Status:Complete; Done: 10Sep2021 Patient Discussion/Summary Assessment: Nondisplaced left ankle distal fibula fracture, Mark B fracture pattern Plan: Discussed diagnosis, reviewed x-rays, treatment. Fracture is stable for conservative/nonoperative management. She will continue with immobilization in walking boot, she was fitted for a tall walking boot as the walking boot from [facility] was a short walking boot, she can weight-bear as tolerated in boot. I will have her follow-up in 10 days for reassessment with repeat x-rays of the left ankle. Chief Complaint [employer] LT ANKLE X 4 DAYS DOI 09/07/2021 PT FELL DOWNSTAIRS LANDED ON ANKLE + SWELLING, PAIN, BRUISING History of Present Illness Pleasant 66-year-old female today for evaluation of left ankle injury/distal fibula fracture. Injury occurred 4 days ago after a fall, describes inversion type ankle injury, had acute onset of pain following this, was able to bear weight but with difficulty, had some notable swelling and bruising. She was seen in urgent care last week, x-rays revealed a nondisplaced oblique fracture of the distal fibula, had purchased walking boot from [employer] which she has been wearing, did have a walker as well. She states that she has seen improvement in symptoms over the past few days, swelling is improved, pain is less with weightbearing in the boot. She is taking wdjd-qdx-kxouqdf medications. She did ice once but has not since, says she did not tolerate this well. She denies any numbness or tingling. Review of Systems The patient's past medical, surgical, family, and social history as well as allergies and medications were reviewed with the patient and updated in the chart Constitutional: no fever, no chills, not feeling tired, no recent weight gain and no recent weight loss. ENT: no nosebleeds. Cardiovascular: no chest pain. Respiratory: no shortness of breath and no cough. Gastrointestinal: no abdominal pain, no nausea, no vomiting and no diarrhea. Integumentary: no rashes and no skin wound. Neurological: no headache. Psychiatric: no depression and no sleep disturbances. Endocrine: no muscle weakness and no muscle cramps. Hematologic/Lymphatic: no swollen glands and no tendency for easy bruising. All other systems have been reviewed and are negative for complaint. Active Problems Problems Closed fracture of distal end of left fibula, unspecified fracture morphology, initial encounter (824.8) (S82.832A) Fall from stairs (E880.9) (W10.9XXA) Foot injury, left, initial encounter (959.7) (S99.922A) Left ankle injury, initial encounter (959.7) (S99.912A) Sinobronchitis (473.9,490) (J32.9,J40) Past Medical History Problems History of arthritis (V13.4) (Z87.39) Family History Mother No pertinent family history Father No pertinent family history Social History Problems No illicit drug use Non-smoker (V49.89) (Z78.9) Allergies ampicillin Recorded By: Claudio Hardin; 04/16/2019 4:01:56 PM Current Meds Medication NameInstruction Doxycycline Monohydrate 100 MG Oral TabletTAKE 1 TABLET TWICE DAILY. WalkerUSE DIRECTED. Wlaking Boot, CAMsize 8.5 shoe Vitals Vital Signs Recorded: 10Sep2021 10:52AM Height5 ft 5 in Gialzt932 lb BMI Zovfgiqbog45.97 kg/m2 BSA Calculated1.66 Physical Exam General/Constitutional: well appearing, no distress, appears stated age HEENT: sclera clear Respiratory: non labored breathing Vascular: No edema, swelling or tenderness, except as noted in detailed exam. Integumentary: No impressive skin lesions present, except as noted in detailed exam. Neurological: Alert and oriented Psychological: Normal mood and affect. Musculoskeletal: Normal, except as noted in detailed exam and in HPI. Antalgic gait, unassisted Left ankle: Patient has some moderate soft tissue swelling most prominent over the lateral malleolus, there is some dependent ecchymosis over the dorsal midfoot and forefoot. She has some ecchymosis at the lateral ankle and hindfoot. No significant swelling over the anterior medial ankle. She is focally tender at the distal fibula laterally. She has mildly decreased range of motion at the ankle in all directions. Strength testing was deferred in setting of acute fracture. Sensation intact to light touch, 2+ pedal pulses Results/Data Strays of left ankle from 09/07/2021 independently reviewed, there is a nondisplaced oblique fracture of the distal fibula at the level of the ankle joint, no widening of ankle mortise Signatures Electronically signed by : Claire Brewer MD; Sep 10 2021 11:33AM EST (Author) Normal [facility] ANKLE, COMPLETE, MIN 3 VIEWS on 09-07-2021 ANKLE, COMPLETE, MIN 3 VIEWS Patient Name: ABDOUL FORTUNE STUDY: FOOT; COMPLETE, MIN 3 VIEWS; ANKLE, COMPLETE, MIN 3 VIEWS; Left; 09/07/2021 12:44 pm INDICATION: fell on stairs and landed on foot/ankle W10.9XXA: Fall from stairs. COMPARISON: None. ACCESSION NUMBER(S): [id number]; [id number] ORDERING CLINICIAN: ERNESTINA VALDES FINDINGS: Three views of the left ankle and three views of the left foot were obtained. There is metatarsus primus varus and hallux valgus. There is mild DJD in the medial intertarsal joints and 1st metatarsophalangeal joint.. The other joints of the foot appear maintained. The ankle joint mortise appears aligned and maintained. There is soft tissue swelling about the lateral ankle. There is an undisplaced oblique fracture of the distal fibula likely secondary to eversion injury. The medial joint mortise and distal tibiofibular syndesmosis do not appear widening. IMPRESSION: Undisplaced oblique distal fibular fracture due to eversion injury as detailed above Electronically signed by: ANAHI ATWOOD MD Normal [facility] FOOT, COMPLETE, MIN 3 VIEWSo n 09-07-2021 FOOT, COMPLETE, MIN 3 VIEWS Patient Name: ABDOUL FORTUNE STUDY: FOOT; COMPLETE, MIN 3 VIEWS; ANKLE, COMPLETE, MIN 3 VIEWS; Left; 09/07/2021 12:44 pm INDICATION: fell on stairs and landed on foot/ankle W10.9XXA: Fall from stairs. COMPARISON: None. ACCESSION NUMBER(S): [id number]; [id number] ORDERING CLINICIAN: ERNESTINA VALDES FINDINGS: Three views of the left ankle and three views of the left foot were obtained. There is metatarsus primus varus and hallux valgus. There is mild DJD in the medial intertarsal joints and 1st metatarsophalangeal joint.. The other joints of the foot appear maintained. The ankle joint mortise appears aligned and maintained. There is soft tissue swelling about the lateral ankle. There is an undisplaced oblique fracture of the distal fibula likely secondary to eversion injury. The medial joint mortise and distal tibiofibular syndesmosis do not appear widening. IMPRESSION: Undisplaced oblique distal fibular fracture due to eversion injury as detailed above Electronically signed by: ANAHI ATWOOD MD Normal [facility] Office Visit (Urgent Care)on 09-07-2021 Follow-up visit Diagnoses/Problems Assessed Foot injury, left, initial encounter (959.7) (S99.922A) Left ankle injury, initial encounter (959.7) (S99.912A) Fall from stairs (E880.9) (W10.9XXA) Closed fracture of distal end of left fibula, unspecified fracture morphology, initial encounter (824.8) (S82.832A) Orders Closed fracture of distal end of left fibula, unspecified fracture morphology, initial encounter Start: Walker; USE DIRECTED Rx By: Ernestina Valdes; Dispense: 0 Days ; #:1 Each; Refill: 0;For: Closed fracture of distal end of left fibula, unspecified fracture morphology, initial encounter; CRISTEL = N; Sent To: [facility] Orthopedic - Foot and Ankle Referral Evaluation and Treatment Evaluate AND Treat Status: Hold For - Scheduling Requested for: 07Sep2021 Ordered;For: Closed fracture of distal end of left fibula, unspecified fracture morphology, initial encounter; Ordered By: Ernestina Valdes Performed: Due: 06Dec2021 Start: Wlaking Boot, CAM; size 8.5 shoe Rx By: Ernestina Valdes; Dispense: 0 Days ; #:1 Each; Refill: 0;For: Closed fracture of distal end of left fibula, unspecified fracture morphology, initial encounter; CRISTEL = N; Sent To: [facility]07 Fall from stairs Xray Ankle 3 View; Status:Resulted - Requires Verification; Done: 07Sep2021 12:44PM Performed:[facility]; Due:[id number]; Last Updated By:Monica Horner; 09/07/2021 12:57:05 PM;Ordered; Stat; For:Fall from stairs; Ordered By:Ernestina Valdes; Laterality : Left Radiologist to Determine Optimal Study : Y What are the patient's signs and symptoms? : fell on stairs and landed on foot/ankle Xray Foot Complete Min 3 View; Status:Resulted - Requires Verification; Done: 07Sep2021 12:44PM Performed:[facility]; Due:[id number]; Last Updated By:Monica Horner; 09/07/2021 12:57:29 PM;Ordered; Stat; For:Fall from stairs; Ordered By:Ernestina Valdes; Laterality : Left Radiologist to Determine Optimal Study : Y What are the patient's signs and symptoms? : fell on stairs and landed on foot/ankle Patient Discussion/Summary Boot on when walking Use walker when walking and try to put as little weight as possible on your left foot/ankle Ice 10-15 minutes 4-5 times daily Tylenol as needed for pain Elevate foot as much as possible Follow-up with orthopedics Provider Impressions X-ray of left foot showed no fractures or dislocations. X-ray of left ankle per radiology review shows nondisplaced fracture of the distal fibula. Ordered cam boot and walker for patient Encouraged Tylenol, ice and elevation We will follow up with orthopedics Encouraged nonweightbearing as much as possible Patient verbalized agreement and understanding with this plan Chief Complaint Chief Complaints Foot Problem History of Present Illness Patient is a 66-year-old female who presents with left foot and ankle pain that started today. She was going down the stairs and slipped on a book with her right foot fell down 2 stairs in landed on her left foot/ankle. She now has swelling and pain in her left ankle as well as pain on the top of her left foot. Active Problems Problems Sinobronchitis (473.9,490) (J32.9,J40) Allergies Medication ampicillin Recorded By: Claudio Hardin; 04/16/2019 4:01:56 PM Current Meds Medication NameInstruction Doxycycline Monohydrate 100 MG Oral TabletTAKE 1 TABLET TWICE DAILY. Vitals Vital Signs Recorded: 07Sep2021 12:09PM Wmybmlhcdez84 F Heart Rate74 Xdxtfcwtwud03 Xdqovhsj898 Uuwgpqtto12 Height5 ft 5 in Hqqcfd636 lb BMI Fovttjwcwn87.97 kg/m2 BSA Calculated1.66 Tobacco Useb) No PHQ-2 #1. Over the last 2 weeks have you felt down, depressed or hopeless? (If yes, answer PHQ-9 below)No PHQ-2 #2. Over the last 2 weeks have you felt little interest or pleasure in doing things? (If yes, answer PHQ-9 below)No Fall Screeningb) One or more falls in the last year O2 Nubhyyzkdh26 Pain Scale5 Physical Exam Constitutional: Well developed, well nourished. vital signs reviewed. patient alert Head and Face: Head and face: Normal. Eyes: Normal external exam - pupils were equal in size, round, reactive to light (PERRL) with normal accommodation and extraocular movements intact (EOMI). Musculoskeletal: Left medial ankle is edematous and tender. Limited dorsal and plantar flexion. Tenderness at the third and fourth metatarsal. There is minimal swelling in this area. Pedal pulses 2+. Cap refills less than 3 seconds. Results/Data Xray Ankle 3 [id number] 12:44PMMomoErnestina vivas [Sep 07, 2021 12:57PM Monica Horner] advised at time of visit. SG Test NameResultFlagReference Xray Ankle 3 View(Report) FINAL REPORT Interpreted by: ANAHI ATWOOD A, MD 09/07/21 12:51 Patient Name: ABDOUL FORTUNE STUDY: FOOT; COMPLETE, MIN 3 VIEWS; ANKLE, COMPLETE, MIN 3 VIEWS; Left; 09/07/2021 12:44 pm INDICATION: fell on stairs and landed on foot/ankle W10.9X (more content not included)... [facility] 09-07-2021 XR Ankle 3 Views FINAL REPORT Interpreted by: ANAHI ATWOOD A, MD 09/07/21 12:51 Patient Name: ABDOUL FORTUNE STUDY: FOOT; COMPLETE, MIN 3 VIEWS; ANKLE, COMPLETE, MIN 3 VIEWS; Left; 09/07/2021 12:44 pm INDICATION: fell on stairs and landed on foot/ [facility] Work Phone: XR Foot 3 Views FINAL REPORT Interpreted by: ANAHI ATWOOD A, MD 09/07/21 12:51 Patient Name: ABDOUL FORTUNE STUDY: FOOT; COMPLETE, MIN 3 VIEWS; ANKLE, COMPLETE, MIN 3 VIEWS; Left; 09/07/2021 12:44 pm INDICATION: fell on stairs and landed on foot/ Normal [facility] Work Phone: Tobacco Screening.on 022 Adult depression screening assessment No [facility] Work Phone: Fall risk assessment b) One or more fall s in the last year [facility] Work Phone: Tobacco use status [facility]PHS b) No [facility] Work Phone: Otheron 12-08-2000 CONVERTED ELECTRONIC SIGNATURE JELANI RHODES M.D., PATHOLOGIST (Electronic signature on file) Final Signed Out: 12/08/2000 14:45 [facility] CONVERTED FINAL DIAGNOSIS UTERINE FIBROIDS, EXCISION - PORTIONS OF SUBMUCOSAL FIBROIDS. SCANTY ENDOMETRIUM WITH SECRETORY PATTERN. NEGATIVE FOR MALIGNANCY. [facility] CONVERTED ORDERING PROVIDER Ordering Provider: AILEEN PINA [facility] Vital Signs Date Time Vital Sign Value Performing Clinician Facility 09-27-2024 11:45-0400 Body height 162.56 cm Bianca Constantino [facility] SUPERVISOR-C Work Phone: [facility] 09-27-2024 11:45-0400 Body mass index (BMI) [Ratio] 23.3 kg/m2 Bianca Constantino WAREHOUSE AND RECEIVING SUPERVISOR-C Work Phone: [phone] [place] [address] 09-27-2024 11:45-0400 Body temperature 98.2 [degF] Bianca Constantino WAREHOUSE AND RECEIVING SUPERVISOR-C Work Phone: [facility] 09-27-2024 11:45-0400 Body weight 61.68 kg Bianca Constantino WAREHOUSE AND RECEIVING SUPERVISOR-C Work Phone: [facility] 09-27-2024 11:45-0400 Diastolic blood pressure 80 mm[Hg] Bianca Constantino WAREHOUSE AND RECEIVING SUPERVISOR-C Work Phone: [facility] 09-27-2024 11:45-0400 Heart rate 74 /min Bianca Constantino WAREHOUSE AND RECEIVING SUPERVISOR-C Work Phone: [facility] 09-27-2024 11:45-0400 Respiratory rate 18 /min Bianca Constantino WAREHOUSE AND RECEIVING SUPERVISOR-C Work Phone: [facility] 09-27-2024 11:45-0400 SaO2% (BldA) [Mass fraction] 98 % Bianca Constantino WAREHOUSE AND RECEIVING SUPERVISOR-C Work Phone: [facility] 09-27-2024 11:45-0400 Systolic blood pressure 150 mm[Hg] Bianca Constantino WAREHOUSE AND RECEIVING SUPERVISOR-C Work Phone: [facility] 06-02-2023 18:12-0500 Body height 163.83 cm [facility] 06-02-2023 18:12-0500 Body mass index (BMI) [Ratio] 23.3 kg/m2 [facility] 06-02-2023 18:12-0500 Body weight 62.59 kg [facility] 03-13-2023 18:05-0400 Body mass index (BMI) [Ratio] 22.9 kg/m2 [facility] 03-13-2023 18:05-0400 Body temperature 98.1 [degF] [facility] 03-13-2023 18:05-0400 Body weight 61.68 kg [facility] 03-13-2023 18:05-0400 Diastolic blood pressure 80 mm[Hg] [facility] 03-13-2023 18:05-0400 Heart rate 73 /min [facility] 03-13-2023 18:05-0400 Respiratory rate 18 /min [facility] 03-13-2023 18:05-0400 SaO2% (BldA) [Mass fraction] 94 % [facility] 03-13-2023 18:05-0400 Systolic blood pressure 120 mm[Hg] [facility] 09-20-2022 16:25-0400 Body height 163.83 cm [facility] 09-20-2022 16:25-0400 Body mass index (BMI) [Ratio] 23.3 kg/m2 [facility] 09-20-2022 16:25-0400 Body temperature 98.1 [degF] [facility] 09-20-2022 16:25-0400 Body weight 62.59 kg [facility] 09-20-2022 16:25-0400 Diastolic blood pressure 80 mm[Hg] [facility] 09-20-2022 16:25-0400 Heart rate 65 /min [facility] 09-20-2022 16:25-0400 Respiratory rate 18 /min [facility] 09-20-2022 16:25-0400 SaO2% (BldA) [Mass fraction] 100 % [facility] 09-20-2022 16:25-0400 Systolic blood pressure 128 mm[Hg] [facility] 01-01-2022 15:23-0400 Body height 163.83 cm [facility] Work Phone: 01-01-2022 15:23-0400 Body mass index (BMI) [Ratio] 22.3 kg/m2 [facility] Work Phone: 01-01-2022 15:23-0400 Body temperature 98.2 [degF] [facility] Work Phone: 01-01-2022 15:23-0400 Body weight 59.87 kg [facility] Work Phone: 01-01-2022 15:23-0400 Diastolic blood pressure 70 mm[Hg] [facility] Work Phone: 01-01-2022 15:23-0400 Heart rate 83 /min [facility] Work Phone: 01-01-2022 15:23-0400 Respiratory rate 18 /min [facility] Work Phone: 01-01-2022 15:23-0400 SaO2% (BldA) [Mass fraction] 98 % [facility] Work Phone: 01-01-2022 15:23-0400 Systolic blood pressure 128 mm[Hg] [facility] Work Phone: 10-29-2021 10:47-0400 Body height 165.1 cm Jeane Donaldson Work Phone: [id number] [address] A DO Work Phone: 10-29-2021 10:47-0400 Body mass index (BMI) [Ratio] 21.97 kg/m2 Jeane Donaldson Work Phone: AT-Zujieenuqy-Pstm dview [address] A DO Work Phone: 10-29-2021 10:47-0400 Body surface area Derived from formula 1.66 m2 Jeane Donaldson Work Phone: ZS-Tzyeebnovx-Zled dview [address] A DO Work Phone: 05-09-2022 10:47-0400 Body weight 59.88 kg Jeane Donaldson Work Phone: HM-Zhnmsxjaiu-Rbob dview [address] A DO Work Phone: 09-10-2021 10:52-0400 Body height 165.1 cm Referring Provider Unknown [facility] Work Phone: 09-10-2021 10:52-0400 Body mass index (BMI) [Ratio] 21.97 kg/m2 Referring Provider Unknown [facility] Work Phone: 09-10-2021 10:52-0400 Body surface area Derived from formula 1.66 m2 Referring Provider Unknown [facility] Work Phone: 09-10-2021 10:52-0400 Body weight 59.88 kg Referring Provider Unknown [facility] Work Phone: 09-07-2021 12:09-0400 Body height 165.1 cm Referring Provider Unknown [facility] Work Phone: 09-07-2021 12:09-0400 Body mass index (BMI) [Ratio] 21.97 kg/m2 Referring Provider Unknown [facility] Work Phone: 09-07-2021 12:09-0400 Body surface area Derived from formula 1.66 m2 Referring Provider Unknown [facility] Work Phone: 09-07-2021 12:09-0400 Body temperature 98 [degF] Referring Provider Unknown [facility] Work Phone: 09-07-2021 12:09-0400 Body weight 59.88 kg Referring Provider Unknown [facility] Work Phone: 09-07-2021 12:09-0400 Diastolic blood pressure 87 mm[Hg] Referring Provider Unknown [facility] Work Phone: 09-07-2021 12:09-0400 Heart rate 74 /min Referring Provider Unknown [facility] Work Phone: 09-07-2021 12:09-0400 Respiratory rate 14 /min Referring Provider Unknown [facility] Work Phone: 09-07-2021 12:09-0400 SaO2% (BldA) [Mass fraction] 97 % Referring Provider Unknown [facility] Work Phone: 09-07-2021 12:09-0400 Systolic blood pressure 154 mm[Hg] Referring Provider Unknown [facility] Work Phone: 09-07-2021 12:09-0400 5 1 Referring Provider Unknown [facility] Work Phone: Comment on above: [facility] 04-16-2019 18:01-0400 Body Temperature 98.1 [degF] Trever Davidsongers [facility] Work Phone: 04-16-2019 18:01-0400 BP Diastolic 87 mm[Hg] Trever Davidsongers [facility] Work Phone: 04-16-2019 18:01-0400 BP Systolic 137 mm[Hg] Trever Davidsongers [facility] Work Phone: 04-16-2019 18:01-0400 Pulse (Heart Rate) 70 /min Trever Davidsongers [facility] Work Phone: 04-16-2019 18:01-0400 Pulse Oximetry 99 % Trever Davidsongers [facility] Work Phone: 04-16-2019 18:01-0400 Respiratory Rate 14 /min Trever Davidsongers [facility] Work Phone: Encounters Encounter Date Encounter Type Care Provider Facility Start: 09-27-2024 End: 09-27-2024 ambulatory Bianca PETE Work Phone: [facility] Work Phone: Start: 09-27-2024 End: 09-27-2024 Patient encounter procedure Bianca Constantino WAREHOUSE AND RECEIVING SUPERVISOR-C -Laboratory, Specimen Work Phone: Start: 09-27-2024 End: 09-27-2024 ambulatory Bianca Constantino WAREHOUSE AND RECEIVING SUPERVISOR Facility:[facility] Start: 06-02-2023 End: 06-02-2023 ambulatory [facility] Work Phone: Start: 06-02-2023 End: 06-02-2023 Patient encounter procedure [facility]-Laboratory, Specimen Work Phone: Start: 09-20-2022 End: 09-20-2022 ambulatory [facility] Work Phone: Start: 09-20-2022 End: 09-20-2022 Patient encounter procedure [facility]-Laboratory, Specimen Start: 01-01-2022 End: 01-01-2022 Patient encounter procedure [facility], Specimen Start: 01-01-2022 Patient encounter status [facility] Start: 10-29-2021 Postop follow up vis it related to original px Jeane Carolyn Donaldson Work Phone: BN[facility]ou[facility]Lbi[facility] [address] A DO Work Phone: Start: 10-15-2021 Chart Update Jeane Leon Gonzalezs on Work Phone: [facility] Work Phone: Start: 10-12-2021 FUV, Provider: Claire Brewer, Status: Pen, Time: 10:20 AM Jeane Donaldson Work Phone: [facility] Work Phone: Start: 10-12-2021 Postop follow up vis it related to original px Jeane S Mendoza Work Phone: [facility] Work Phone: Start: 10-11-2021 AUDIT Jeane Leon Gonzlaezs on Work Phone: [facility] Work Phone: Start: 09-24-2021 Chart Update Jeane Yin on Work Phone: [facility] Work Phone: Start: 09-21-2021 Postop follow up vis it related to original px Jeane Donaldson Work Phone: [facility] Work Phone: Start: 09-07-2021 Chart Update Referring Prov ider Unknown [facility] Work Phone: Start: 09-07-2021 Office outpatient vi sit 15 minutes Referring Provider Unknown [facility] Work Phone: Start: 08-13-2017 Ambulatory Jeane Donaldson [facility] Start: 12-05-2000 End: 12-05-2000 Patient encounter procedure Aileen Pina [facility] Start: 12-05-2000 Results Only Aileen Pina [facility] Procedures Date Procedure Procedure Detail Performing Clinician Start: 09-27-2024 Urine culture Bianca murray WAREHOUSE AND RECEIVING SUPERVISOR-C Work Phone: Start: 06-02-2023 Urine culture Start: 12-05-2000 CONVERTED SURGICAL PATHOLOGY Aileen Pina Plan of Treatment Date Care Activity Detail Author Start: 10-29-2021 FUV, Provider: Claire Brewer, Status: Pen, Time: 10:40 AM FUV, Provider: Claire Brewer, Status: Pen, Time: 10:40 AM [facility] Work Phone: Start: 10-12-2021 FUV, Provider: Claire Brewer, Status: Pen, Time: 10:20 AM FUV, Provider: Claire Brewer, Status: Pen, Time: 10:20 AM [facility] Work Phone: Start: 09-21-2021 FUV, Provider: Claire Brewer, Status: Pen, Time: 10:20 AM FUV, Provider: Claire Brewer, Status: Pen, Time: 10:20 AM [facility] Work Phone: Start: 09-10-2021 NPV, Provider: Claire Brewer, Status: Pen, Time: 10:40 AM NPV, Provider: Claire Brewer, Status: Pen, Time: 10:40 AM [facility] Work Phone: [facility] Immunizations Immunization Date Immunization Notes Care Provider Fa krishnaty 03-09-2021 Pfizer-BioNTech COVI D-19 Vacc 30 MCG/0.3ML Intramuscular Suspension Referring Provider Unknown [facility] Work Phone: 02-16-2021 Pfizer-BioNTech COVI D-19 Vacc 30 MCG/0.3ML Intramuscular Suspension Referring Provider Unknown -[facility] Work Phone: 08-26-2016 tetanus toxoid, redu indu diphtheria toxoid, and acellular pertussis vaccine, adsorbed Referring Provider Unknown -[facility] Work Phone: Payers Date Payer Category Payer Private Health Insurance [facility] [id number] [id number] Self-pay [id number] Medicare [id number] Unknown Unknown [id number] Unknown [id number] Social History Date Type Detail Facility [facility] Work Phone: Sex Assigned At Not on file [facility] Non-smoker Non-smoker [facility] Work Phone: Start: 1955 Sex Assigned At Female [facility] Tobacco smoking stat us [facility] Unknown if ever smoked [facility] Work Phone: Start: 09-30-2024 Sex Female (finding) [facility] Functional Status Date Assessment Result Facility NEGATED: Highlighted row Functional performance Functional status health issues are not documented Disease -[facility] Work Phone: Mental Status Date Assessment Result Facility NEGATED: Highlighted row Cognitive function [Interpretation] Cognitive status health issues are not documented Disease -[facility] Work Phone: Evaluation note 09-27-2024 Note Date & Type Note Facility 09-27-2024 Evaluation note Diagnosis Onset Date Resolution Cystitis acute September 27 2:39pm Estrogen deficiency acute September 27, 2024 2:39pm [facility] Work Phone: History of Present illness Narrative 10-29-2021 Note Date & Type Note Facility 10-29-2021 History of Present illness Narrative Jorgito 66-year-old female presenting for follow-up of left ankle injury, Mark B distal fibula lateral malleolus fracture. Patient is 7 weeks out from injury, we are treating conservatively as fracture is nondisplaced, treatment has been conservative/nonoperative. At 5-week follow-up I recommended that she begin weaning out of her walking boot over the next 1 to 2 weeks which she was able to do. She says that she has no pain at the fracture site at the lateral malleolus, she will get occasional mild discomfort and swelling further down in the ankle. Patient is pleased with her improvement. She says activities are more limited by ongoing right hip pain rather than ankle pain at this time. Has known hip arthritis. She does feel like wearing boot did exacerbate some of her hip symptoms. She has been following with outside orthopedic provider for her hip. [id number] [address] A DO Work Phone: History of Present illness Narrative 09-07-2021 Note Date & Type Note Facility 09-07-2021 History of Present illness Narrative Jorgito 66-year-old female presenting for follow-up of left ankle injury, Mark B distal fibula lateral malleolus fracture. Patient is 5 weeks out from injury, we are treating conservatively as fracture is nondisplaced, she has been weightbearing as tolerated in a tall walking boot over the past 5 weeks. Continued improvement in symptoms, she has taken a few steps around the house out of the boot with mild discomfort. She admits to some residual swelling. No new injuries or symptoms. [facility] Work Phone: History of Present illness Narrative 09-07-2021 Note Date & Type Note Facility 09-07-2021 History of Present illness Narrative Pleasant 66-year-old female presenting for follow-up of left ankle injury, Mark B distal fibula lateral malleolus fracture. Patient is 2 weeks out from injury, we are treating conservatively as fracture is nondisplaced, she has been weightbearing as tolerated in a tall walking boot over the past 2 weeks. She says that pain is improving. She has been compliant with immobilization. She is taking lcmv-yur-jhcchsz medication sparingly for pain. She denies any new injuries or symptoms. She is going to [place] for the next 2 weeks, has an apartment [facility]. [facility] Work Phone: Evaluation note Note Date & Type Note Facility Evaluation note Diagnosis Onset Date Wellness examination acute [facility] Work Phone: Evaluation note Note Date & Type Note Facility Evaluation note Diagnosis Onset Date Maxillary sinusitis, acute a cute Right acute otitis media acu te [facility] Work Phone: History of Present illness Narrative Note Date & Type Note Facility History of Present illness Narrative Patient is a 66-year-old female who presents with left foot and ankle pain that started today. She was going down the stairs and slipped on a book with her right foot fell down 2 stairs in landed on her left foot/ankle. She now has swelling and pain in her left ankle as well as pain on the top of her left foot. [facility] Work Phone: History of Present illness Narrative Note Date & Type Note Facility History of Present illness Narrative Patient is a 66-year-old female who presents with left foot and ankle pain that started today. She was going down the stairs and slipped on a book with her right foot fell down 2 stairs in landed on her left foot/ankle. She now has swelling and pain in her left ankle as well as pain on the top of her left foot. [facility] Work Phone: History of Present illness Narrative Note Date & Type Note Facility History of Present illness Narrative Patient is a 66-year-old female who presents with left foot and ankle pain that started today. She was going down the stairs and slipped on a book with her right foot fell down 2 stairs in landed on her left foot/ankle. She now has swelling and pain in her left ankle as well as pain on the top of her left foot. [facility] Work Phone: Reason for referral (narrative) Note Date & Type Note Facility Reason for referral (narrative) No reason for referral information available [facility] Work Phone: Summary Purpose Family History No Family History Records FoundUnknown Family Member Name Dates Details No pertinent family history: Mother, Father(V49.89, Z78.9) Status:Active Unknown Family Member Name Dates Details No pertinent family history: Mother, Father(V49.89, Z78.9) Status:Active Unknown Family Member Name Dates Details No pertinent family history: Mother, Father(V49.89, Z78.9) Status:Active Unknown Family Member Name Dates Details No pertinent family history: Mother, Father(V49.89, Z78.9) Status:Active Unknown Family Member Name Dates Details No pertinent family history: Mother, Father(V49.89, Z78.9) Status:Active Unknown Family Member Name Dates Details No pertinent family history: Mother, Father(V49.89, Z78.9) Status:Active Unknown Family Member Name Dates Details No pertinent family history: Mother, Father(V49.89, Z78.9) Status:Active Unknown Family Member Name Dates Details No pertinent family history: Mother, Father(V49.89, Z78.9) Status:Active Advance Directives No Advanced Directives Records FoundNo Advanced Directives Records FoundNo Advanced Directives Records FoundNo Advanced Directives Records Found Chief Complaint F/u left ankleF/U LEFT ANKLEF/U LT ANKLE Chief Complaint and Reason for Visit Chief Complaint Annual wellness exam labs PE Reason for Visit Wellness examination Chief Complaint Annual wellness exam PE Reason for Visit Wellness examination Chief Complaint Sinus infection Urinary tract infection Reason for Visit Maxillary sinusitis, acute Right acute otitis media Chief Complaint Admit Date Urinary tract infection September 27, 2024 2:39pm Reason for Visit Admit Date Cystitis September 27, 2024 2:39 pm Estrogen deficiency September 27, 2024 2:39 pm Additional Source Comments INFORMATION SOURCE (unrecogn ized section and content) DATE CREATED AUTHOR 12/12/2017 [facility] DATE CREATED AUTHOR AUTHOR'S ORGANIZ ATION 10/29/2021 [facility] DATE CREATED AUTHOR AUTHOR'S ORGANIZ ATION 10/29/2021 [employer] DATE CREATED AUTHOR AUTHOR'S ORGANIZ ATION 10/01/2024 [facility] Source Comments (unrecognize d section and content) In the event this informatio n is protected by the Federal Confidentiality of Alcohol and Drug Abuse Patient Records regulations: The Federal rules restrict any use of the information to criminally investigate or prosecute any alcohol or drug abuse patient.[facility] Goals (unrecognized section and content) Goals may be documented in a n alternate sectionGoals may be documented in an alternate sectionGoals may be documented in an alternate sectionGoals may be documented in an alternate section Care Teams (unrecognized sec tion and content) Team Status: Inactive Member Role Status Dates YANCI Koroma NP Attending Provider Active Team Status: Active Member Role Status Dates YANCI Koroma NP Primary Care Provider Active Team Status: Inactive Member Role Status Dates YANCI Koroma NP Primary Care Provider, Attend ing Provider Active Team Status: Inactive Member Role Status Dates YANCI Koroma NP Primary Care Provider Active Start: September 27, 2024 End: September 27, 2024 YANCI Koroma NP Attending Provider Active Start: September 27, 2024 End: September 27, 2024 YANCI Koroma NP Referring Provider Active Start: September 27, 2024 End: September 27, 2024 FOR RECORDS PERTAINING TO PATIENTS WHO ARE OR HAVE BEEN ENROLLED IN A CHEMICAL DEPENDENCY/SUBSTANCEABUSE PROGRAM, SOME INFORMATION MAY BE OMITTED. This clinical summary was aggregated from multiple sources. Caution should be exercised in using it in the provision of clinical care. This summary normalizes information from multiple sources, and as a consequence, information in this document may materially change the coding, format and clinical context of patient data. In addition, data may be omitted in some cases. CLINICAL DECISIONS SHOULD BE BASED ON THE PRIMARY CLINICAL RECORDS. [facility], [facility]. provides no warranty or guarantee of the accuracy or completeness of information in this document.
== END | disposition home or self-care (01) ==
PROVIDERS: PCP Nurse Practitioner; Visit Provider Nurse Practitioner
DX: N30.90 Cystitis, unspecified without hematuria (principal)
CPT/HCPCS: 87086; 87088